=== PATIENT | male | born 1960 | race Caucasian/White ===

== ENCOUNTER 2019-12-24 09:35 | Emergency (ER) | payer OTHER, SELFPAY ==
[2019-12-24 09:47] VITALS: BP 125/95; PULSE 63; RESP 16; TEMP 37.2; O2SAT 98
--- NOTE | 2019-12-24 10:13 | ED.GENADULT ---
HPI - General Adult General Chief complaint: Back Pain/Injury Stated complaint: Back pain History of Present Illness HPI narrative: Patient is a 59-year-old male who presents to the urgent care via POV for evaluation of an exacerbation of chronic back pain that began approximately 3 days ago. Patient reports his back pain is located in the low mid back. He reports his pain to be sharp and shooting in nature. Pain is intermittent. No relief with ibuprofen. Symptoms are improved with laying down and worsen with walking, sitting, and standing. She reports difficulty with ambulation secondary to pain. Pertinent negatives: fever, chills, sweats, change in appetite, poor p.o. intake, malaise, calf tenderness, skin color changes, rash, warmth, swelling, numbness, tingling, loss of sensation, deformity, bladder/bowel incontinence, decreased range of motion, weakness, difficulty with coordination, nausea, vomiting, lymphadenopathy, shortness of breath, chest pain, heart palpitations, and heart murmur. Related Data Home Medications Medication Instructions Recorded Confirmed atorvastatin [Lipitor] 80 mg PO DAILY 12/24/19 12/24/19 lisinopril [Zestril] 5 mg PO DAILY 12/24/19 12/24/19 metoprolol tartrate [Lopressor] 100 mg PO BID 12/24/19 12/24/19 omeprazole magnesium [Prilosec OTC] 40 mg PO DAILY 12/24/19 12/24/19 Allergies Allergy/AdvReac Type Severity Reaction Status Date / Time No Known Allergies Allergy Verified 12/24/19 10:05 Review of Systems Review of Systems: Narrative: All other systems reviewed and are negative PMFSH Social History Social History Gender identity (if verbalized by the patient): Male Exam Narrative: Exam Narrative: GENERAL: Well-appearing, well-nourished, and in no acute distress. HEAD: Normocephalic, atraumatic. NECK: Supple. No lymphadenopathy or nuchal rigidity. No evidence of pain, decreased ROM, or deformity. CHEST: Lung sounds are clear to auscultation in bilateral lung zhao. No respiratory distress. HEART: Regular rate and rhythm. No murmur heard. Normal peripheral pulses. ABDOMEN: Soft, nontender, nondistended, normal active bowel sounds in all quadrants. No guarding. No rebound tenderness. No pulsatile or palpable abdominal mass(es). No CVAT EXTREMITIES: Normal range of motion. No edema. BACK: Full ROM. No evidence of deformity, spasm, mass, spinal tenderness, or swelling. Bilateral SLR tests negative. Slowed gait. Ambulates hunched over. Moderate pain elicited to mid low back. Pain elicited with all ROM. SKIN: Warm, dry, no rash. No skin color changes. Excellent turgor. NEURO: No focal deficits. Alert and oriented x3. Course Vital Signs Vital signs: Vital Signs Temperature 98.9 F 12/24/19 09:47 Pulse Rate 63 12/24/19 09:47 Respiratory Rate 16 12/24/19 09:47 Blood Pressure 125/95 H 12/24/19 09:47 Pulse Oximetry 98 12/24/19 09:47 Temperature 98.9 F 12/24/19 09:47 Pulse Rate 63 12/24/19 09:47 Respiratory Rate 16 12/24/19 09:47 Blood Pressure 125/95 H 12/24/19 09:47 Pulse Oximetry 98 12/24/19 09:47 Medical Decision Making Differential Diagnosis Differential Diagnosis: Spinal stenosis, radiculopathy/sciatica,cauda equina syndrome, sacroiliac pathology, fracture, strain Vital Signs Vital Signs: Vital Signs Temperature 98.9 F 12/24/19 09:47 Pulse Rate 63 12/24/19 09:47 Respiratory Rate 16 12/24/19 09:47 Blood Pressure 125/95 H 12/24/19 09:47 Pulse Oximetry 98 12/24/19 09:47 Temperature 98.9 F 12/24/19 09:47 Pulse Rate 63 12/24/19 09:47 Respiratory Rate 16 12/24/19 09:47 Blood Pressure 125/95 H 12/24/19 09:47 Pulse Oximetry 98 12/24/19 09:47 Critical Care Time Critical Care Time Critical Care Time: No Discharge Plan Discharge Clinical Impression: Dorsalgia Patient Disposition: Home, Self-Care Condition: Stable Instructions:
== END 2019-12-24 10:30 | disposition home or self-care (01) ==
PROVIDERS: Emergency Provider Nurse Practitioner Family; PCP Family Medicine
DX: M54.5 Low back pain (principal)
CPT/HCPCS: 99213; G0463

== ENCOUNTER 2020-01-27 08:00 | Outpatient (RCR) | payer OTHER, SELFPAY ==
--- NOTE | 2020-01-07 09:31 | PTOPEVAL ---
PHYSICAL THERAPY EVALUATION AND PLAN OF CARE Thank you for referring this patient to [facility]. I recommend Chon Participate in physical therapy 2x/week for 3-5 weeks. Please review, sign, date and return this plan of care BARBARA. I agree with and certify that the following plan of care is medically necessary. Referring Physician Date Attending Provider: LUIS A Reynolds Evaluation Evaluation Information Diagnosis lower back pain Onset 3 weeks ago Subjective Information reports acute on chronic low Query Text:As Reported By Patient/ back pain. States that it Family comes around almost every year with an exacerbation that is typically treated with steroids. This time he is on his 3rd round of steroids and it is not helping like it used to. Prevents his from participating in work ( [employer]) like he needs to. Describes that most of the pain is on the right side and he is experiencing right lower leg pain and what feels like cramps in the back of the leg. Pain Assessment Timing of Pain Assessment Timing of Pain Assessment Assessment Pain Scale Pain Scale Used Numeric (1 - 10) Self Report Pain Assessment Lower Spine, Lumbar Reported Pain Level 2 Pain Description Aching,Shooting,Spasms Pain Frequency Chronic,Continuous Other Pain Description 2 Lowest Pain Intensity 2 Greatest Pain Intensity 9 Pain Aggravating Factors Bending,Exercise/Activity, Walking Other Pain Aggravating Factors sit>stand motion; Pain Behaviors None Pain Relief Interventions Used By Heat Patient Interventions Used By Clinicians Exercise,Mobilization Additional Pain Comments steroids, ibuprofen Pain Score Pain Score 2: Self Report Cervical and Lumbar ROM Lumbar ROM Lumbar Flexion (0-90) 30 Query Text:Active in Degrees Lumbar Flexion Active Mid [place] Query Text:Hands to: Lumbar Extension (0-40) 11 Query Text:Active in Degrees Lateral Rotation Right (0-45) 22 Query Text:Active in Degrees Lateral Rotation Left (0-45) 23 Query Text:Active in Degrees Lower Extremity Range of Motion General Lower Extremity Range of Motion Gross Lower Extremity Range of Motion prone hip extension: left Comments
--- NOTE | 2020-01-25 08:04 | PCPTNOTE ---
Patient called & cancelled scheduled appointment this date due to doctors appointment.
--- NOTE | 2020-01-27 09:06 | PTOPEVAL ---
PHYSICAL THERAPY PLAN OF CARE UPDATE AND PROGRESS REPORT Thank you for referring Chon Garcia to [facility]. I recommend holding chart at this time. We will hold for 30days. Will discharge on 02/26/20 if we do not hear follow-up from Chon. Please review, sign, date and return this plan of care BARBARA. I agree with and certify that the following plan of care is medically necessary. Referring Physician Date Attending Provider: LUIS A Reynolds Diagnosis lower back pain Subjective Information Reports that he is doing much Query Text:As Reported By Patient/ better, especially the last Family couple of days. He states there continues to be a twinge in the back of the right leg, but overall he is doing much better and is very pleased. He followed-up with referring physician and there is a plan to have an MRI and then follow-up with pain management for injections. Pain Assessment Timing of Pain Assessment Timing of Pain Assessment Pre-Treatment Pain Scale Pain Scale Used Numeric (1 - 10) Self Report Pain Assessment Lower Spine, Lumbar Reported Pain Level 2 Pain Description Aching,Cramping,Shooting, Spasms,Tingling Pain Aggravating Factors Bending,Exercise/Activity, Walking Interventions Used By Clinicians Exercise,Heat,Mobilization, Traction Pain Score Pain Score 2: Self Report Cervical and Lumbar ROM Lumbar ROM Lumbar Flexion (0-90) 45 Query Text:Active in Degrees Lumbar Flexion Active Mid [place] Query Text:Hands to: Lumbar Extension (0-40) 20 Query Text:Active in Degrees Lateral Rotation Right (0-45) 35 Query Text:Active in Degrees Lateral Rotation Left (0-45) 35 Query Text:Active in Degrees Lower Extremity Range of Motion General Lower Extremity Range of Motion Reason Not Measured WFL/Left,WFL/Right Cervical and Lumbar Muscle Testing Lumbar Strength Lower Abdominal Strength 4-Good- Lower Extremity Muscle Strength Testing Hip Strength Bilateral Hip Flexion Strength 5 Normal Hip Extension Strength 4+ Good + Hip Abduction Strength 5 Normal Hip Medial Rotation Strength 5 Normal Hip Lateral Rotation Strength 5 Normal Knee Strength Bilateral Knee Flexion Strength 5 Normal Knee Extension Strength 5 Normal Dallin Test Shortened Muscles Short (R) Iliopsoas,Short (L) Iliopsoas Two-Joint Hip Flexor Shortened Muscles Short (R) I
--- NOTE | 2020-02-25 11:58 | PCPTNOTE ---
PHYSICAL THERAPY DISCHARGE NOTE Attending Provider: LUIS A Reynolds Patient:Chon Garcia Date of :1960 As indicated in progress note written on 01/27/2020, Chon's chart has been held for 30 days while he followed-up with physician. We have not heard from patient regarding further PT needs; therefore he will be discharged at this time. The goals have been partially met. Thank you for referring this patient to [facility]. Please review, sign, date and return this discharge summary BARBARA. I have been updated about the patient's current status and I agree with discharge from the above service at this time. Referring Physician Date
== END 2020-02-26 08:31 | disposition home or self-care (01) ==
LOC: ANHPT 08:00
PROVIDERS: PCP Family Medicine; Visit Provider Physician Assistant Surgical
DX: M48.061 Spinal stenosis, lumbar region without neurogenic claudication (principal)
CPT/HCPCS: 97012; 97014; 97110; 97140; 97161; G0283

== ENCOUNTER 2020-02-03 07:34 | Outpatient (CLI) | payer OTHER, SELFPAY ==
--- NOTE | ~2020-02-03 | MR_ITS ---
EXAMINATION: MR lumbar spine wo con DATE: 02/03/2020 08:19 INDICATION: Low back pain. TECHNIQUE: Magnetic resonance imaging (MRI) of the lumbar spine was performed without intravenous con trast. Sequences included sagittal T2-weighted FSE, sagittal T2-weighted FS FSE, sagittal T1-weighted FSE, and axial T2-weighted FSE. COMPARISON: None FINDINGS: There is 13 degrees levoscoliosis of lumbar spine. There are Schmorl's nodes at T11-T12, T1 2-L1, L2-L3, and L3-L4. There is moderately decreased disc height at T11-T12, mildly decreased disc h eight at T12-L1 and L3-L4, moderately decreased disc height at L4-L5, and severely decreased disc hei ght at L5-S1. Epidural lipomatosis is noted. The distal spinal cord signal intensity is normal. The c onus medullaris is at L1. The following disc levels are specifically discussed: L1-L2: The disc does not extend beyond the endplate margin. There is mild bilateral facet joint osteo arthritis. There is no neural foraminal stenosis. There is no central canal stenosis. L2-L3: The disc is bulging. There is mild bilateral facet joint osteoarthritis. There is mild bilater al neural foraminal stenosis. There is no central canal stenosis. L3-L4: The disc is bulging with superimposed central extrusion. There is severe bilateral facet joint osteoarthritis. There is mild bilateral neural foraminal stenosis. There is severe central canal you nosis. L4-L5: The disc is bulging and has an annular fissure. There is severe bilateral facet joint osteoart hritis. There is mild bilateral neural foraminal stenosis. There is moderate central canal stenosis. L5-S1: The disc is bulging and has an annular fissure. There is severe bilateral facet joint osteoart hritis. There is mild bilateral neural foraminal stenosis. There is mild central canal stenosis. IMPRESSION: 1. Severe lumbar spondylosis. Reviewed, dictated and finalized at location A.
== END 2020-02-03 07:35 | disposition home or self-care (01) ==
LOC: ANHIMG 07:36
PROVIDERS: PCP Family Medicine; Visit Provider Physician Assistant Surgical
DX: M54.5 Low back pain (principal); M47.816 Spondylosis without myelopathy or radiculopathy, lumbar region
CPT/HCPCS: 72148

== ENCOUNTER 2020-02-13 09:07 | Outpatient (CLI) | payer OTHER, SELFPAY ==
[2020-02-13 09:53] LABS: Blood Urea Nitrogen 13 mg/dL (9-20); Calcium 9.3 mg/dL (8.4-10.2); Carbon Dioxide 29 mmol/L (22-30); Chloride 104 mmol/L (98-107); Estimated Glomerular Filt Rate > 60; Glucose 92 mg/dL (75-110); Potassium 4.3 mmol/L (3.4-5.0); Sodium 136 mmol/L (137-145)
== END 2020-02-13 09:08 | disposition home or self-care (01) ==
LOC: ANHLAB 09:09
PROVIDERS: PCP Family Medicine; Visit Provider Internal Medicine Cardiovascular Disease
DX: I10 Essential (primary) hypertension (principal)
CPT/HCPCS: 36415; 80048

== ENCOUNTER 2020-08-13 06:58 | Outpatient (CLI) | payer OTHER, SELFPAY ==
[2020-08-13 07:58] LABS: Cholesterol 173 mg/dL (0-200); HDL Direct 45 mg/dL; Triglycerides 157 mg/dL (<150)
[2020-08-13 08:09] LABS: LDL Cholesterol Direct 105 mg/dL
== END 2020-08-13 06:59 | disposition home or self-care (01) ==
PROVIDERS: PCP Family Medicine; Visit Provider Nurse Practitioner Adult Health
DX: I25.10 Atherosclerotic heart disease of native coronary artery without angina pectoris (principal)
CPT/HCPCS: 36415; 80061

== ENCOUNTER 2020-08-22 07:38 | Outpatient (CLI) | payer OTHER, SELFPAY ==
--- NOTE | ~2020-08-22 | US_ITS ---
EXAMINATION: US carotid duplex BI DATE: 08/22/2020 08:32 INDICATION: Abnormal carotid ultrasound. TECHNIQUE: Grayscale, color Doppler, and pulsed Doppler images of the cervical carotid arteries were obtained. The degree of vessel stenosis is placed in one of the following categories: normal, <50%, 5 0-69%, >=70% but less than near-occlusion, near-occlusion, or total occlusion. Note that percent sten osis relative to normal distal artery lumen diameter is indirectly measured from velocity measurement s as described by Regan, et al. Radiology 2003; [id number]:[id number]. COMPARISON: None. FINDINGS: RIGHT: The right common carotid artery (CCA) peak systolic velocity (PSV) is 74 cm/s. The right internal car otid artery (ICA) PSV is 63 cm/s. The right ICA end-diastolic velocity (EDV) is 14 cm/s. The right IC A/CCA PSV ratio is 0.9. Grayscale and color Doppler images yield an estimate of <50% diameter reducti on from plaque in the ICA. There is antegrade flow in the right vertebral artery. LEFT: The left CCA PSV is 81 cm/s. The left ICA PSV is 82 cm/s. The left ICA EDV is 36 cm/s. The left ICA/C CA PSV ratio is 1.0. Grayscale and color Doppler images yield an estimate of <50% diameter reduction from plaque in the ICA. There is antegrade flow in the left vertebral artery. IMPRESSION: 1. <50% stenosis in the right internal carotid artery. 2. <50% stenosis in the left internal carotid artery. Reviewed, dictated and finalized at location A. E INVESTIGATOR
== END 2020-08-22 07:39 | disposition home or self-care (01) ==
PROVIDERS: PCP Family Medicine; Visit Provider Nurse Practitioner Adult Health
DX: R93.89 Abnormal findings on diagnostic imaging of other specified body structures (principal); I65.23 Occlusion and stenosis of bilateral carotid arteries
CPT/HCPCS: 93880

== ENCOUNTER 2020-09-17 11:22 | Outpatient (CLI) | payer OTHER, SELFPAY ==
[2020-09-17 11:50] LABS: Alanine Aminotransferase 38 U/L (4-50); Alkaline Phosphatase 58 U/L (38-126); Anion Gap 3 mmol/L (8-16); Aspartate Amino Transferase 34 U/L (17-59); Bilirubin,Total 1.2 mg/dL (0.2-1.3); Blood Urea Nitrogen 12 mg/dL (9-20); Calcium 9.3 mg/dL (8.4-10.2); Carbon Dioxide 32 mmol/L (22-30); Chloride 105 mmol/L (98-107); Estimated Glomerular Filt Rate > 60; Glucose 92 mg/dL (75-110); Potassium 4.2 mmol/L (3.4-5.0); Sodium 140 mmol/L (137-145)
[2020-09-17 12:20] LABS: Prostate Specific Antigen 0.4 ng/mL (< OR = 4.0)
[2020-09-19 11:14] LABS: Cholesterol 139 mg/dL (0-200); HDL Direct 43 mg/dL; Triglycerides 180 mg/dL (<150)
[2020-09-19 11:24] LABS: LDL Cholesterol Direct 73 mg/dL
== END 2020-09-17 11:23 | disposition home or self-care (01) ==
PROVIDERS: PCP Internal Medicine; Visit Provider Internal Medicine
DX: Z79.899 Other long term (current) drug therapy (principal); I10 Essential (primary) hypertension; Z12.5 Encounter for screening for malignant neoplasm of prostate
CPT/HCPCS: 36415; 80053; 80061; 84153; G0103

== ENCOUNTER 2021-03-11 07:38 | Outpatient (CLI) | payer OTHER, SELFPAY ==
[2021-03-11 08:38] LABS: Alanine Aminotransferase 41 U/L (4-50); Albumin Level 4.3 g/dL (3.5-5.1); Alkaline Phosphatase 53 U/L (38-126); Anion Gap 8 mmol/L (8-16); Aspartate Amino Transferase 40 U/L (17-59); Bilirubin,Total 1.7 mg/dL (0.2-1.3); Blood Urea Nitrogen 15 mg/dL (9-20); Calcium 9.2 mg/dL (8.4-10.2); Carbon Dioxide 28 mmol/L (22-30); Chloride 104 mmol/L (98-107); Cholesterol 161 mg/dL (0-200); Estimated Glomerular Filt Rate > 60; Glucose 97 mg/dL (75-110); HDL Direct 54 mg/dL; Potassium 4.1 mmol/L (3.4-5.0); Sodium 140 mmol/L (137-145); Triglycerides 122 mg/dL (<150)
[2021-03-11 08:49] LABS: LDL Cholesterol Direct 68 mg/dL
== END 2021-03-11 07:39 | disposition home or self-care (01) ==
PROVIDERS: PCP Internal Medicine; Visit Provider Internal Medicine
DX: I10 Essential (primary) hypertension (principal); E78.5 Hyperlipidemia, unspecified; Z79.899 Other long term (current) drug therapy
CPT/HCPCS: 36415; 80053; 80061

== ENCOUNTER 2021-06-26 00:49 | Day surgery (SDC) | payer OTHER, SELFPAY ==
[2021-06-15 10:59] VITALS: BMI 27.1
[2021-06-26 06:57] VITALS: BP 126/91; PULSE 71; RESP 18; TEMP 36.1; O2SAT 95; BMI 27.6
[2021-06-26] MEDS: LACTATED RINGERS 1,000 ML 150 ML IV CONT (07:09)
--- NOTE | 2021-06-26 07:33 | WPDGICN ---
Assessment and Plan Assessment and plan (1) Screening for colon cancer: Code(s): Z12.11 - Encounter for screening for malignant neoplasm of colon Status: Acute Assessment and Plan: Patient presents for screening colonoscopy. He has a prior history of colon polyps most recent colonoscopy 2014. Further recommendations will be given after endoscopy. GI Consult Note Consult date/time: 06/26/21 07:33 HPI: Chon Garcia is a 60 year old male Presents for screening colonoscopy. Patient has a prior history of colon polyps. He reports that his current weight appetite bowel movements are normal. Patient denies abdominal pain. His family history is noncontributory. 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, Social History Social History Smoking packs per day: 0.5 Smoking cigarettes per day: 10.0 Years smoked: 20 Smoking pack-years: 10.00 Smoking status: Never smoker Second hand tobacco smoke exposure: No Smoking end date: 02/16/15 Alcohol intake: current Drinks per week: 6 Alcohol use details: 20 Living arrangements: with family Gender identity (if verbalized by the patient): Male Spiritual care concerns: No Meds Home Medications and Allergies Home Medications Medication Instructions Recorded Confirmed Type atorvastatin [Lipitor] 80 mg PO DAILY 12/24/19 06/26/21 History lisinopril [Zestril] 5 mg PO DAILY 12/24/19 06/26/21 History omeprazole magnesium [Prilosec OTC] 40 mg PO DAILY 12/24/19 06/26/21 History aspirin 81 mg tablet,delayed 81 mg PO DAILY 09/12/20 06/26/21 History release ezetimibe 10 mg tablet 10 mg PO DAILY #60 tablet 09/13/20 06/26/21 Rx omega-3 fatty acids 1,000 mg PO DAILY cap 09/19/20 06/26/21 History metoprolol tartrate 100 mg tablet 100 mg PO BID #180 tablet 06/15/21 06/26/21 Rx Allergies Allergy/AdvReac Type Severity Reaction Status Date / Time No Known Allergies Allergy Verified 06/26/21 06:56 Vital Signs Vital Signs - 24 hr 06/26/21 06:57 Temperature 97 F L Pulse Rate 71 Respiratory Rate 18 Blood Pressure 126/91 H Pulse Oximetry 95 Exam Narrative: Physical exam reveals patient be alert. Vital signs stable. HEENT exam is unremarkable. Patient is anicteric. Lungs are clear to auscultation and percussion. Heart is without murmur or extra sounds. Abdominal exam bowel sounds are present soft nontender with no organomegaly. Digital external rectal exam is normal.
--- NOTE | 2021-06-26 07:34 | P.PNAN_ITS ---
Anes - Initial Pre Proc Eval Procedure: Operation Date: 06/26/21 08:00 Proposed Procedures p Screening Colonoscopy - Matthew Rice MD Date/Time: 06/26/21 07:34 Surgeon: Matthew Rice MD Pre Op Diagnosis: hx of colon polyps Patient Data Age: 60 Gender: M Height: 1.78 m Weight: 87.4 kg Last Vital Signs Temp 97 F L 06/26/21 06:57 Pulse 71 06/26/21 06:57 Resp 18 06/26/21 06:57 BP 126/91 H 06/26/21 06:57 Pulse Ox 95 06/26/21 06:57 Allergies Allergy/AdvReac Type Severity Reaction Status Date / Time No Known Allergies Allergy Verified 06/26/21 06:56 Home Medications Medication Instructions Recorded Confirmed Type atorvastatin [Lipitor] 80 mg PO DAILY 12/24/19 06/26/21 History lisinopril [Zestril] 5 mg PO DAILY 12/24/19 06/26/21 History omeprazole magnesium [Prilosec OTC] 40 mg PO DAILY 12/24/19 06/26/21 History aspirin 81 mg tablet,delayed 81 mg PO DAILY 09/12/20 06/26/21 History release ezetimibe 10 mg tablet 10 mg PO DAILY #60 tablet 09/13/20 06/26/21 Rx omega-3 fatty acids 1,000 mg PO DAILY cap 09/19/20 06/26/21 History metoprolol tartrate 100 mg tablet 100 mg PO BID #180 tablet 06/15/21 06/26/21 Rx Patient hx anesthesia problems: none Family hx anesthesia problems: none [facility] Past Medical History Medical History (Updated 06/26/21 @ 07:34 by Harpreet Flores MD) Chronic GERD Essential hypertension Mixed hyperlipidemia Surgical History Surgical History (Updated 06/26/21 @ 07:34 by Harpreet Flores MD) 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, Social History Social History Smoking packs per day: 0.5 Smoking cigarettes per day: 10.0 Years smoked: 20 Smoking pack-years: 10.00 Smoking status: Never smoker Second hand tobacco smoke exposure: No Smoking end date: 02/16/15 Alcohol intake: current Drinks per week: 6 Alcohol use details: 20 Living arrangements: with family Gender identity (if verbalized by the patient): Male Spiritual care concerns: No Anes - Eval Final PreProcedure Day of Procedure 06/26/21 07:34 Patient weight: overweight Heart: regular rate and rhythm Lungs: clear to auscultation Airway: Mallampati scale class II Neurological: alert and oriented Last oral intake: >/= 8 hours ASA classification: III Emergent: no Anesthetic plan: proceed Anesthesia type and monitoring: general GIVS and standard monitoring Informed Consent: The patient's anesthetic plan and its attendant risks and benefits were discussed with the patient/family/POA. Questions were solicited and answers provided to the satisfaction of the patient/family/POA.
[2021-06-26 08:20] VITALS: BP 145/80; PULSE 79; RESP 16; O2SAT 96
[2021-06-26 08:30] VITALS: BP 120/86; PULSE 66; RESP 16; O2SAT 98
[2021-06-26 08:40] VITALS: BP 130/90; PULSE 59; RESP 21; O2SAT 100
== END 2021-06-26 08:46 | disposition home or self-care (01) ==
PROVIDERS: PCP Internal Medicine; Visit Provider Internal Medicine Gastroenterology
PROC: 0DJD8ZZ Inspection of Lower Intestinal Tract, Via Natural or Artificial Opening Endoscopic (ICD-10-PCS; CPT 45378; principal; 2021-06-26 08:00)
DX: Z12.11 Encounter for screening for malignant neoplasm of colon (principal); K64.8 Other hemorrhoids; Z86.010 Personal history of colon polyps; K21.9 Gastro-esophageal reflux disease without esophagitis; I10 Essential (primary) hypertension; E78.2 Mixed hyperlipidemia; Z79.82 Long term (current) use of aspirin; Z95.1 Presence of aortocoronary bypass graft; Z87.891 Personal history of nicotine dependence
CPT/HCPCS: 45378; J2704; J7120

== ENCOUNTER → 2021-10-05 01:49 | Outpatient (CLI) | payer OTHER, SELFPAY ==
[2021-10-05 13:43] LABS: Influenza Control Positive
[2021-10-05 20:34] LABS: SARS-CoV-2 RNA PCR Positive
== END ==
PROVIDERS: PCP Internal Medicine; Visit Provider Nurse Practitioner
DX: R68.89 Other general symptoms and signs (principal); U07.1 COVID-19
CPT/HCPCS: 87804; C9803; U0003; U0005

== ENCOUNTER 2022-01-06 08:01 | Outpatient (CLI) | payer OTHER, SELFPAY ==
[2022-01-06 09:45] LABS: Alanine Aminotransferase 34 U/L (4-50); Albumin Level 4.2 g/dL (3.5-5.1); Alkaline Phosphatase 64 U/L (38-126); Anion Gap 5 mmol/L (8-16); Aspartate Amino Transferase 38 U/L (17-59); Bilirubin,Total 0.7 mg/dL (0.2-1.3); Blood Urea Nitrogen 16 mg/dL (9-20); Calcium 8.8 mg/dL (8.4-10.2); Carbon Dioxide 29 mmol/L (22-30); Chloride 106 mmol/L (98-107); Cholesterol 158 mg/dL (0-200); Estimated Glomerular Filt Rate > 60; Glucose 110 mg/dL (65-110); HDL Direct 50 mg/dL; Potassium 4.6 mmol/L (3.4-5.0); Sodium 140 mmol/L (137-145); Triglycerides 95 mg/dL (<150)
[2022-01-06 09:48] LABS: LDL Cholesterol Direct 74 mg/dL
[2022-01-06 10:01] LABS: Prostate Specific Antigen 0.5 ng/mL (< OR = 4.0)
[2022-01-09 13:39] LABS: Testosterone Total 454 ng/dL (250-1100)
== END 2022-01-06 08:02 | disposition home or self-care (01) ==
PROVIDERS: PCP Internal Medicine; Referring Provider Internal Medicine Cardiovascular Disease; Visit Provider Nurse Practitioner
DX: E78.2 Mixed hyperlipidemia (principal); Z12.5 Encounter for screening for malignant neoplasm of prostate; R53.83 Other fatigue
CPT/HCPCS: 36415; 80053; 80061; 84153; 84403; G0103

== ENCOUNTER 2023-11-05 08:50 | Outpatient (CLI) | payer OTHER, SELFPAY ==
--- NOTE | ~2023-11-05 | CT_ITS ---
Non-contrast CT scan of the Pelvis Clinical indication: Bilateral inguinal hernias Technique: 2.5 mm axial scans were obtained through the pelvis without intravenous or oral contrast. Dose reduction technique was used on this scan by utilizing automated exposure control and iterative reconstruction technique. The dose-length product (DLP) was 252.48 mGy-cm. Findings: Partially imaged infrarenal abdominal aortic aneurysm measures up to at least 4.6 cm in max imum diameter and the visualized portion. There are atherosclerotic calcifications. Visualized bowel loops are unremarkable. No bowel obstruction evident. No ascites seen. Left inguinal hernia contains fat as well as a significant portion of the urinary bladder, with possi ble mild bladder wall thickening in this region. There is a small fat-containing right inguinal herni a. No bowel involvement in either hernia. Prostate gland is minimally enlarged. Impression: Moderate to large left inguinal hernia contains fat as well as a significant portion of the urinary b ladder. Possible mild urinary bladder wall thickening within the hernia. Correlate for cystitis. Small fat-containing right inguinal hernia. 4.6 cm partially imaged infrarenal abdominal aortic aneurysm. Consider dedicated evaluation, as indic ated. Reviewed, dictated and finalized at location . ERY TEST ENGINEER Impression: Moderate to large left inguinal hernia contains fat as well as a significant po rtion of the urinary bladder. Possible mild urinary bladder wall thickening within the hernia. Correlate for cystitis. Small fat-containing right inguinal hernia. 4.6 cm partially imaged infrarenal abdominal aortic aneurysm. Consider dedicate d evaluation, as indicated.
--- NOTE | ~2023-11-05 | CT_ITS ---
CT Scan of the Chest without Contrast: Clinical Indication: Lung cancer screening, personal history of nicotine dependence Technique: Contiguous sections were acquired throughout the chest without intravenous contrast. Dose reduction technique was used on this scan by utilizing automated exposure control and iterative recon struction technique. The dose-length product (DLP) was 170.82 mGy-cm. Findings: There is no evidence of any significant mediastinal, hilar or axillary lymphadenopathy. Coronary cecy ry calcifications are present. There is no evidence of pleural or pericardial effusion. 5 mm right upper lobe pulmonary nodule noted. Images through the upper abdomen reveal no abnormalities. Impression: Lung RADS 2: Benign appearance. [id number] screening CT advised. Reviewed, dictated and finalized at location . NING AND DEVELOPMENT ADMINISTRATOR Impression: Lung RADS 2: Benign appearance. [id number] screening CT advised.
== END 2023-11-05 08:51 | disposition home or self-care (01) ==
PROVIDERS: PCP Nurse Practitioner; Visit Provider Surgery
DX: K40.20 Bilateral inguinal hernia, without obstruction or gangrene, not specified as recurrent (principal); I71.43 Infrarenal abdominal aortic aneurysm, without rupture; Z12.2 Encounter for screening for malignant neoplasm of respiratory organs; Z87.891 Personal history of nicotine dependence
CPT/HCPCS: 71271; 72192

== ENCOUNTER 2023-11-05 09:20 | Outpatient (CLI) | payer OTHER, SELFPAY ==
--- NOTE | 2023-11-05 09:34 | ECG_ITS ---
Measurements Intervals [place] Rate: 59 P: 36 ND: 183 QRS: 4 QRSD: 90 T: 15 QT: 390 QTc: 388 Interpretive Statements SINUS BRADYCARDIA WITH SINUS ARRHYTHMIA POSSIBLE LEFT ATRIAL ENLARGEMENT INCOMPLETE RIGHT BUNDLE BRANCH BLOCK BASELINE ARTIFACT- I, II, III, AVR, AVL, AVF, V1 BORDERLINE ECG NO PREVIOUS ECG AVAILABLE FOR COMPARISON Electronically Signed On 11-05-2023 9:59:10 INGOT CAR OPERATOR by George Mcknight D.O.
== END 2023-11-05 09:21 | disposition home or self-care (01) ==
LOC: ANHSURGERY 09:23
PROVIDERS: PCP Nurse Practitioner; Visit Provider Surgery
DX: K40.90 Unilateral inguinal hernia, without obstruction or gangrene, not specified as recurrent (principal); I10 Essential (primary) hypertension; Z01.818 Encounter for other preprocedural examination; I45.10 Unspecified right bundle-branch block
CPT/HCPCS: 36415; 86850; 86900; 86901; 93005

== ENCOUNTER 2023-11-11 08:18 | Outpatient (CLI) | payer OTHER, SELFPAY ==
--- NOTE | ~2023-11-11 | US_ITS ---
EXAMINATION: US aorta DATE: 11/11/2023 11:48 INDICATION: Abdominal aortic aneurysm TECHNIQUE: Grayscale, color Doppler, and pulsed Doppler images of the aorta and common iliac arteries were obtained. COMPARISON: None. FINDINGS: The proximal aorta is obscured by shadowing bowel gas. The mid aorta measures 2.8 cm in AP diameter a t the proximal margin of a fusiform aneurysm in the mid to distal aorta which measures up to 4.4 cm i n maximal AP diameter before tapering to 2.3 cm at the bifurcation. The right common iliac artery mike sures 1.0 cm. The left common iliac artery measures 1.2 cm. IMPRESSION: 1. 4.4 cm diameter fusiform infrarenal abdominal aortic aneurysm. Reviewed, dictated and finalized at location A. IOLOGIST
== END 2023-11-11 08:19 | disposition home or self-care (01) ==
PROVIDERS: PCP Nurse Practitioner; Visit Provider Surgery
DX: I71.43 Infrarenal abdominal aortic aneurysm, without rupture (principal)
CPT/HCPCS: 76775

== ENCOUNTER 2023-11-13 00:57 | Day surgery (SDC) | payer OTHER, SELFPAY ==
[2023-11-01 13:07] VITALS: BMI 27.2
--- NOTE | 2023-11-01 13:13 | PC.NURSE ---
Report to the Outpatient Waiting Room, entrance under the green pavilion located off [facility], at time 6:00 on date 11/13/23. Planned Procedure Time: 7:30. Time changes happen often and if your time is changed the preop area will call you the afternoon before. - You and your visitor will be asked to self-screen and do not enter if you have any COVID symptoms. - A mask is optional within the hospital at this time. Patients may have clear liquids (water, carbonated beverages, clear teas, apple juice) until 3 hours prior to surgery (4:30) with a maximum of 20 ounces. - No food from midnight until time of surgery Take the following medications with a SIP of water the morning of surgery: METOPROLOL DO NOT STOP ANY OF YOUR OTHER PRESCRIPTION MEDICATIONS PRIOR TO SURGERY ?EXCEPT THE FOLLOWING Medications to discontinue per physician: VITAMINS/SUPPLEMENTS Date to take last dose: 11/09/23 Please no make-up, nail congolese, hairspray, perfume, deodorant, or body powder the day of surgery. No jewelry (including any body piercings) or valuables the day of surgery, leave them at home. Please take a shower or bath the night before, or the morning of, surgery with an antibacterial soap. Wear comfortable, loose fitting clothing. - Jewelry must be removed prior to entering the operating room. Rings and piercings that are not removed may be cut off. - The hospital will not accept responsibility for valuables. - Please leave all valuables, including medications, at home the day of surgery. If you are going home after surgery, a licensed cross country truck driver must drive you home. - NO public transportation without another adult if you receive anesthesia. - We recommend that an adult stay with you for 24 hours following discharge. - We also recommend that you do not drive, make important decision, drink alcoholic beverages, or take any drugs that were not prescribed by your health care provider for at least 24 hours after your discharge time. Follow any additional instructions given to you from your surgeon. If you or anyone in your household have experienced Covid symptoms in the past week, please notify your surgeon or the nurse liaison at the phone number below for possible testing. Telephone instructions given to JESSICA Burks GUI and asked if any additional questions and then verbalized understanding. Patient advised to call surgeon office or pre surgery nurse liaison [phone] if any additional questions.
[2023-11-13] VITALS (8 sets, daily range): BP systolic 106–136; BP diastolic 65–90; PULSE 58–67; RESP 14–20; TEMP 36.3–36.8; O2SAT 95–97
--- NOTE | 2023-11-13 06:51 | WPDANESEPPF ---
Anes - Initial Pre Proc Eval Procedure: Operation Date: 11/13/23 07:30 Proposed Procedures p Laparoscopic Bilateral Inguinal Hernia Repair with Mesh, Davinci Assisted - Ramin Rosario DO Date/Time: 11/13/23 06:51 Surgeon: Ramin Rosario DO Pre Op Diagnosis: bilat inguinal hernia Patient Data Age: 63 Gender: M Height: 1.78 m Weight: 86.2 kg Allergies Allergy/AdvReac Type Severity Reaction Status Date / Time No Known Allergies Allergy Verified 11/01/23 13:05 Home Medications Medication Instructions Recorded Confirmed Type aspirin 81 mg tablet,delayed 81 mg PO DAILY 09/12/20 11/01/23 History release omega-3 fatty acids 1,000 mg PO DAILY 09/19/20 11/01/23 History ezetimibe 10 mg tablet (Zetia) 10 mg PO DAILY #90 tabs 04/12/23 11/01/23 Rx losartan 50 mg tablet 50 mg PO DAILY #90 tabs 04/12/23 11/01/23 Rx metoprolol tartrate 100 mg tablet 100 mg PO BID #180 tabs 04/12/23 11/01/23 Rx (Lopressor) rosuvastatin 40 mg tablet 40 mg PO DAILY #90 tabs 04/12/23 11/01/23 Rx sildenafil 100 mg tablet 100 mg PO DAILY PRN sexual 04/12/23 11/01/23 Rx activity #30 tabs omeprazole 40 mg capsule,delayed See Rx Instructions .Route 10/10/23 11/01/23 Rx release .COMPLEX #90 caps multivitamin 1 tablet PO DAILY 11/01/23 11/01/23 History Patient hx anesthesia problems: none Family hx anesthesia problems: none Results Review: All pre-operative results and documents have been reviewed as part of the pre-operative evaluation. 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, Social History Social History Smoking packs per day: 0.25 Smoking cigarettes per day: 5.0 Years smoked: 30 Smoking pack-years: 7.50 Smoking status: Former smoker Tobacco type: cigarettes Second hand tobacco smoke exposure: No Smoking end date: 10/07/13 Alcohol intake: current Drinks per week: 2 Substance use: never Substance use type: does not use Lack of Transportation: No Lack of Food: Never True Current Housing: I Have Housing Concerned About Future Housing: No Difficulty Paying Gas/Electric Bills: No Difficulty Paying for Meds: No Education: High School Diploma/GED Difficulty w/ Childcare or Family Care: No Living arrangements: with family Gender identity (if verbalized by the patient): Male Spiritual care concerns: No Anes - Eval Final PreProcedure Day of Procedure 11/13/23 06:51 Patient weight: overweight Heart: regular rate and rhythm and murmur (II/ SMS) Lungs: clear to auscultation Airway: Mallampati scale class II Neurological: alert and oriented Last oral intake: >/= 8 hours ASA classification: III Emergent: no Anesthetic plan: proceed Anesthesia type and monitoring: general ETT and standard monitoring Results Review: All pre-operative results and documents have been reviewed as part of the pre-operative evaluation. Informed Consent: The patient's anesthetic plan and its attendant risks and benefits were discussed with the patient/family/POA. Questions were solicited and answers provided to the satisfaction of the patient/family/POA.
[2023-11-13] MEDS: ACETAMINOPHEN 500 MG TABLET 1000 MG PO (07:00)
[2023-11-13] MEDS: LACTATED RINGERS 1,000 ML 30 ML IV CONT ×3 (07:00→10:10)
[2023-11-13] MEDS: KETOROLAC 15 MG/ML VIAL (*BKC) IV PUSH (07:00)
--- NOTE | 2023-11-13 07:12 | WPDHPUPDATE1 ---
History and Physical Update Update Date/Time: 11/13/23 07:12 History and Physical has been reviewed, including an updated exam of the patient. There are NO changes in the patient's condition. Risks, benefits, and alternatives have been discussed and questions answered. Patient agrees to proceed with procedure.
[2023-11-13] MEDS: ceFAZolin 2 GM/D5W 50 ML 2 GM/50 ML BAG IVPB (07:25)
[2023-11-13] MEDS: BUPIVACAINE/EPINEPHRINE 0.5% 50 ML VIAL 30 ML INFILTRATE (08:10)
--- NOTE | 2023-11-13 09:00 | W.PM.PROC2 ---
Procedure Note - Detailed Date of Procedure 11/13/23 Pre-op Diagnosis bilateral inguinal hernia Post-op Diagnosis Same (Bilateral direct inguinal hernia) Procedure Performed Laparoscopic bilateral inguinal hernia repair with mesh, da Watson assisted Surgeon Ramin Rosario DO Anesthesia General and Local (0.5% bupivacaine with epinephrine) Indications This is a 63-year-old man who presented with a left groin bulge that he noticed about 10 years ago. This has gradually increased in size over the past 10 years and now he occasionally has some urinary symptoms associated with it. The bulge reduces and he usually can urinate more once a bulge completely reduces. He does have some urinary difficulties when the area is bulging out more. He did not have any significant symptoms on the right side. On exam he was found to have bilateral inguinal hernias. The left side was larger than the right. A CT was obtained due to his urinary symptoms and this did show evidence of a portion of the patient's bladder contained within the hernia. Discussions were made with the patient about treatment options and decision was made to proceed with robotic assisted laparoscopic bilateral inguinal hernia repair with mesh. Findings Laparoscopic bilateral inguinal hernia repair was performed. The patient had a Shen placed at the start of the procedure to adequately completely empty his bladder. A portion of the bladder did appear to be going up into the left inguinal hernia. Patient was found to have a large direct left inguinal hernia and a medium-sized direct right inguinal hernia. A robotic transabdominal preperitoneal approach was utilized for repair. Once a wide enough preperitoneal pocket was created on each side, I then placed extra-large 3DMax mid mesh overlying each myopectineal orifice. No specimens were obtained for pathology. Description of Procedure Procedure as well as risks, benefits, and alternatives were discussed with the patient. Written consent was obtained and placed in chart prior to procedure. Patient was brought back to surgical suite. He was placed supine on operating table. Time-out was done to confirm patient and procedure. He was then intubated by Anesthesia Department. His abdomen was prepped and draped in sterile fashion using chlorhexidine prep. 0.5% bupivacaine with epinephrine was infiltrated at each location for incision. An 8 mm incision was made in the left lateral abdomen, and a 5 mm Optiview trocar was advanced through the abdominal layers under direct visualization. Once inside the abdominal cavity, carbon dioxide insufflation was used to create a pneumoperitoneum. A camera was inserted and the abdominal cavity was inspected. The patient was placed in slight Trendelenburg position. An 8 millimeter incision was made on the right lateral abdomen and an 8 millimeter trocar was inserted under direct visualization. Another 8 millimeter incision was made just superior to the umbilicus and an 8 millimeter trocar was inserted under direct visualization. The 5 mm port was then removed and this was replaced with another 8 mm robotic port. The robotic arms were brought up to the patient's bedside and secured to the ports. The camera and instruments were inserted. I then moved over to the robotic console and took control of the camera and instruments. After careful inspection of the abdominal cavity, I began scoring the peritoneum along the left lower quadrant using scissors with electrocautery. The preperitoneal plane was entered and this was carefully dissected caudally along the inferior epigastric vessels. Careful dissection with scissors with electrocautery and blunt dissection was used to continue this dissection. I dissected far enough laterally to allow for mesh placement, and also dissected medially to identify the pubic arch and Rodger's ligament. The hernia sac was identified and carefully dissected posteriorly. The cord contents
== END 2023-11-13 11:15 | disposition home or self-care (01) ==
PROVIDERS: PCP Nurse Practitioner; Visit Provider Surgery
PROC: 8E0Y4CZ Robotic Assisted Procedure of Lower Extremity, Percutaneous Endoscopic Approach (ICD-10-PCS; CPT 49650; principal; 2023-11-13 07:30)
DX: K40.20 Bilateral inguinal hernia, without obstruction or gangrene, not specified as recurrent (principal); K21.9 Gastro-esophageal reflux disease without esophagitis; I10 Essential (primary) hypertension; E78.2 Mixed hyperlipidemia; I71.40 Abdominal aortic aneurysm, without rupture, unspecified; Z79.82 Long term (current) use of aspirin; Z95.1 Presence of aortocoronary bypass graft; Z87.891 Personal history of nicotine dependence
CPT/HCPCS: 49650; S2900; 36415; 71271; 72192; 86850; 86900; 86901; 93005; A9270; C1781; J0330; J0690; J1100; J1885; J2250; J2405; J2704; J3010; J7030; J7120

== ENCOUNTER 2024-01-14 07:22 | Outpatient (CLI) | payer OTHER, SELFPAY ==
[2024-01-14 08:06] LABS: Hematocrit 44.7 % (42.0-52.0); Hemoglobin 14.7 g/dL (14.0-18.0); Mean Corpuscular HGB Conc 32.9 g/dl (32-36); Mean Corpuscular Volume 94.3 fl (80-100); Mean Platelet Volume 9.8 fl (7.4-10.4); Platelet Count Result 247 k/mm3 (150-375); Red Blood Count 4.74 M/mm3 (4.6-6.20); White Blood Count 5.5 K/mm3 (4.5-10.0)
[2024-01-14 08:35] LABS: LDL Cholesterol Direct 81 mg/dL
[2024-01-14 08:40] LABS: Alanine Aminotransferase 43 U/L (6-50); Albumin Level 4.8 g/dL (3.5-5.1); Alkaline Phosphatase 68 U/L (38-126); Anion Gap 7 mmol/L (4-12); Aspartate Amino Transferase 55 U/L (17-59); Bilirubin,Total 1.4 mg/dL (0.2-1.3); Blood Urea Nitrogen 14 mg/dL (9-20); Calcium 9.6 mg/dL (8.4-10.2); Carbon Dioxide 29 mmol/L (22-30); Chloride 102 mmol/L (98-107); Cholesterol 173 mg/dL (0-200); Estimated Glomerular Filt Rate > 60; Glucose 110 mg/dL (65-110); HDL Direct 51 mg/dL; Potassium 4.4 mmol/L (3.4-5.0); Sodium 138 mmol/L (137-145); Triglycerides 205 mg/dL (<150)
[2024-01-14 08:50] LABS: Prostate Specific Antigen 0.5 ng/mL (< OR = 4.0)
== END 2024-01-14 07:23 | disposition home or self-care (01) ==
LOC: ANHLAB 07:26
PROVIDERS: PCP Nurse Practitioner; Referring Provider Internal Medicine Cardiovascular Disease; Visit Provider Nurse Practitioner
DX: Z12.5 Encounter for screening for malignant neoplasm of prostate (principal); E78.5 Hyperlipidemia, unspecified; K21.9 Gastro-esophageal reflux disease without esophagitis; I10 Essential (primary) hypertension; Z95.1 Presence of aortocoronary bypass graft
CPT/HCPCS: 36415; 80053; 80061; 84153; 85027; G0103

== ENCOUNTER 2024-01-30 08:24 | Outpatient (CLI) | payer OTHER, SELFPAY ==
--- NOTE | ~2024-01-30 | CT_ITS ---
EXAMINATION: CTA abd aorta runoff DATE: 01/30/2024 09:28 INDICATION: Infrarenal aorta aneurysm. TECHNIQUE: Computed tomographic angiography (CTA) of the abdominal, pelvis, and both lower extremitie s was performed with 150 mL Omnipaque-350 intravenous contrast. Automated exposure control and iterat yuly reconstruction technique were employed. The dose-length product was 1239.64 mGy-cm. Maximum inten sity projection 3D-reconstructions of the arteries were created by the technologist on a separate wor kstation. COMPARISON: Pelvis CT 11/05/23 FINDINGS: ABDOMINAL AORTA AND ITS BRANCHES: Atherosclerosis is noted. There is no significant stenosis of celiac axis, superior mesenteric artery , or the renal arteries. There is a 4.5 cm fusiform aneurysm of infrarenal aorta. There is moderate s tenosis origin of inferior mesenteric artery. PELVIC VASCULATURE: There is no significant stenosis of the common iliac arteries, external iliac arteries, or anterior i liac arteries. RIGHT LOWER EXTREMITY VASCULATURE: There is no significant stenosis of right common femoral artery, profunda femoral artery, superficial femoral artery, popliteal artery, tibioperoneal trunk, anterior tibial artery, posterior tibial cecy ry, or peroneal artery. LEFT LOWER EXTREMITY VASCULATURE: There is no significant stenosis of left common femoral artery, profunda femoral artery, superficial femoral artery, popliteal artery, anterior tibial artery, tibioperoneal trunk, peroneal artery, or po sterior tibial artery. ADDITIONAL FINDINGS: The visualized portions of the lung bases demonstrate mild atelectasis. No pleural effusion. The live r, gallbladder, spleen, pancreas, adrenal glands, and kidneys are normal. There is diffuse bladder wa ll thickening, likely secondary to chronic outlet obstruction from the mildly enlarged prostate. Ther e is a 5.9 x 5.4 cm thick-walled cystic mass in left inguinal canal. There are no dilated appendix is normal. There are no pathologically enlarged lymph nodes. There is diverticulosis of the colon witho ut evidence of diverticulitis. There is severe lumbar spondylosis IMPRESSION: 1. 4.5 cm fusiform aneurysm of infrarenal aorta. 2. 5.9 x 5.4 cm thick-walled cystic mass in left inguinal canal, which may be a seroma, hematoma, or abscess after hernia surgery. Reviewed, dictated and finalized at location E.
== END 2024-01-30 08:25 | disposition home or self-care (01) ==
PROVIDERS: PCP Nurse Practitioner
DX: I71.43 Infrarenal abdominal aortic aneurysm, without rupture (principal)
CPT/HCPCS: 75635; Q9967

== ENCOUNTER 2024-03-12 10:41 | Outpatient (CLI) | payer OTHER, SELFPAY ==
[2024-03-12 12:04] LABS: Anion Gap 4 mmol/L (4-12); Blood Urea Nitrogen 13 mg/dL (9-20); Calcium 9.6 mg/dL (8.4-10.2); Carbon Dioxide 31 mmol/L (22-30); Chloride 103 mmol/L (98-107); Estimated Glomerular Filt Rate > 60; Glucose 96 mg/dL (65-110); Sodium 138 mmol/L (137-145)
== END 2024-03-12 10:42 | disposition home or self-care (01) ==
LOC: ANHLAB 10:44
PROVIDERS: PCP Nurse Practitioner; Visit Provider Internal Medicine Cardiovascular Disease
DX: I10 Essential (primary) hypertension (principal)
CPT/HCPCS: 36415; 80048

== ENCOUNTER 2024-09-24 07:41 | Outpatient (CLI) | payer OTHER, SELFPAY ==
[2024-09-24 08:08] LABS: Alanine Aminotransferase 40 U/L (6-50); Albumin Level 4.5 g/dL (3.5-5.1); Alkaline Phosphatase 58 U/L (38-126); Anion Gap 3 mmol/L (4-12); Aspartate Amino Transferase 40 U/L (17-59); Bilirubin,Total 1.6 mg/dL (0.2-1.3); Blood Urea Nitrogen 17 mg/dL (9-20); Calcium 9.3 mg/dL (8.4-10.2); Carbon Dioxide 34 mmol/L (22-30); Chloride 100 mmol/L (98-107); Cholesterol 156 mg/dL (0-200); Estimated Glomerular Filt Rate > 60; Glucose 109 mg/dL (65-110); HDL Direct 50 mg/dL; Potassium 3.9 mmol/L (3.4-5.0); Sodium 137 mmol/L (137-145); Triglycerides 142 mg/dL (<150)
[2024-09-24 08:20] LABS: LDL Cholesterol Direct 70 mg/dL
== END 2024-09-24 07:42 | disposition home or self-care (01) ==
PROVIDERS: PCP Nurse Practitioner; Visit Provider Nurse Practitioner
DX: E78.5 Hyperlipidemia, unspecified (principal)
CPT/HCPCS: 36415; 80053; 80061

== ENCOUNTER 2025-07-09 07:25 | Outpatient (CLI) | payer MEDICARE, SELFPAY ==
[2025-07-09 08:13] LABS: Hematocrit 41.1 % (42.0-52.0); Hemoglobin 14.1 g/dL (14.0-18.0); Mean Corpuscular HGB Conc 34.3 g/dl (32-36); Mean Corpuscular Hemoglobin 31.8 pg (26-34); Mean Corpuscular Volume 92.6 fl (80-100); Platelet Count Result 230 k/mm3 (150-375); Red Blood Count 4.44 M/mm3 (4.6-6.20); White Blood Count 6.5 K/mm3 (4.5-10.0)
[2025-07-09 08:34] LABS: Alanine Aminotransferase 44 U/L (6-50); Albumin Level 4.6 g/dL (3.5-5.1); Alkaline Phosphatase 55 U/L (38-126); Anion Gap 8 mmol/L (4-12); Aspartate Amino Transferase 50 U/L (17-59); Bilirubin,Total 1.0 mg/dL (0.2-1.3); Blood Urea Nitrogen 22 mg/dL (9-20); Calcium 9.6 mg/dL (8.4-10.2); Carbon Dioxide 32 mmol/L (22-30); Chloride 95 mmol/L (98-107); Cholesterol 159 mg/dL (0-200); Estimated Glomerular Filt Rate > 60; Glucose 97 mg/dL (65-110); HDL Direct 54 mg/dL; Potassium 3.8 mmol/L (3.4-5.0); Sodium 135 mmol/L (137-145); Total Protein 8.1 g/dL (6.3-8.2); Triglycerides 104 mg/dL (<150)
[2025-07-09 09:10] LABS: Prostate Specific Antigen 0.5 ng/mL (< OR = 4.0)
== END 2025-07-09 07:26 | disposition home or self-care (01) ==
PROVIDERS: PCP Nurse Practitioner; Visit Provider Nurse Practitioner
DX: E78.5 Hyperlipidemia, unspecified (principal); Z12.5 Encounter for screening for malignant neoplasm of prostate; I10 Essential (primary) hypertension
CPT/HCPCS: 36415; 80053; 80061; 84153; 85027; G0103